=== PATIENT | male | born 1965 | race African-American/Black ===

== ENCOUNTER 2022-04-15 10:38 | Emergency (ER) | payer MEDICAID, OTHER ==
[~2022-04-15] VITALS: Ht 175.3 cm; Wt 68.0 kg
[2022-04-15] MEDS ORDERED: PREDNISONE 20MG TABLET PO ONE (15:15)
[2022-04-15] MEDS ORDERED: FAMOTIDINE 20MG TABLET PO ONE (15:15)
[2022-04-15] MEDS ORDERED: P20 MT (15:58)
[2022-04-15] MEDS ORDERED: DIPH25CA83 MT (15:58)
[2022-04-15] MEDS ORDERED: COLL226C TP (15:58)
[2022-04-15] MEDS ORDERED: FAMO-135 MT (15:58)
[2022-04-15 16:10] VITALS: BP 112/78
== END 2022-04-15 16:10 | disposition home or self-care (01) ==
LOC: ER 10:38
DX: T78.49XA Other allergy, initial encounter (principal); L50.0 Allergic urticaria; F12.10 Cannabis abuse, uncomplicated; Z90.49 Acquired absence of other specified parts of digestive tract; X58.XXXA Exposure to other specified factors, initial encounter
CPT/HCPCS: 99283; J7512